=== PATIENT | female | born 1950 | race Caucasian/White ===

== ENCOUNTER 2017-07-24 16:10 | Emergency (ER) | payer MEDICARE, BC ==
[~2017-07-24] VITALS: Ht 162.6 cm; Wt 88.1 kg
[~2017-07-24 16:10] MED LIST: CALC-179 PO; D3400CAP PO; FISHOIL PO; SUPPLEMENTS
[2017-07-24 16:13] VITALS: BP 153/87; PULSE 79; RESP 16; TEMP 98.1; O2SAT 97
[2017-07-24] MEDS ORDERED: DIOV80TA2 PO (16:29)
[2017-07-24] MEDS ORDERED: SODIUM CHLORIDE 0.9% FLUSH 10 ML FLUSH IVF PRN (17:15)
[2017-07-24 17:45] LABS: AUTOMATED NEUTROPHIL # 4.8 TH/MM3 (1.8-7.7); BASOPHIL % 0.6 % (0.0-2.0); EOSINOPHIL # 0.1 TH/MM3 (0-0.4); EOSINOPHIL % 0.9 % (0.0-4.0); HEMATOCRIT 36.4 % (35.0-46.0); LYMPH % 24.6 % (9.0-44.0); LYMPHOCYTE # 1.8 TH/MM3 (1.0-4.8); MEAN CELL VOLUME 89.4 FL (80.0-100.0); MEAN CORPUSCULAR HEMOGLOBIN 29.4 PG (27.0-34.0); MEAN CORPUSCULAR HGB CONC 32.9 % (32.0-36.0); MEAN PLATELET VOLUME 9.3 FL (7.0-11.0); MONO % 6.3 % (0.0-8.0); MONOCYTE # 0.4 TH/MM3 (0-0.9); NEUT % 67.6 % (16.0-70.0); PLATELET COUNT 227 TH/MM3 (150-450); RED BLOOD COUNT 4.07 MIL/MM3 (4.00-5.30); WHITE BLOOD COUNT 7.1 TH/MM3 (4.0-11.0)
--- NOTE | 2017-07-24 17:46 | RADRPT ---
EXAM DATE/TIME: 07/24/2017 17:25 [place] COMPARISON: No previous studies available for comparison. INDICATIONS : Chest pain. MEDICAL HISTORY : None. SURGICAL HISTORY : None. ENCOUNTER: Initial ACUITY: 1 day PAIN SCORE: 4/10 LOCATION: Left chest FINDINGS: The lungs are clear without infiltrate, nodule, or mass. There is no appreciable pleural effusion fo r technique. Heart and mediastinum are unremarkable. CONCLUSION: No acute cardiopulmonary disease. Polo Taylor MD on July 24, 2017 at 17:43 Board Certified Radiologist. This report was verified electronically.
[2017-07-24 17:53] LABS: CHLORIDE 102 MEQ/L (98-107); SODIUM (NA) 137 MEQ/L (136-145)
--- NOTE | 2017-07-24 17:54 | PD ---
HPI Chief Complaint: Pain: Acute or Chronic Time Seen by Provider: 16:57 Travel History International Travel<30 days: No Contact w/Intl Traveler<30days: No Traveled to known affect area: No History of Present Illness HPI This is a 67-year-old female with history of hypertension and dyslipidemia here for evaluation of nontraumatic left arm pain times one day. Patient reports the pain originated in the left upper back and radiates down the left arm. She had one episode similar to this several years ago which she attributed to muscle spasm in the back. The pain is intense aching. The pain is worse with movement of the arm and back. Slightly relieved with rest. She was speaking with a family member who is a physician who advised her that this could be cardiac in nature and recommended she go to the ER for evaluation. She denies chest pain, shortness of breath, diaphoresis currently. PFSH Past Medical History Hx Anticoagulant Therapy: No Cardiovascular Problems: Yes (HTN,CHOL) Diabetes: No Diminished Hearing: No Hypertension: Yes Immunizations Current: Yes Migraines: Yes Shingles: Yes (2013) Tetanus Vaccination: Never Vaccinated Influenza Vaccination: No ?: Not Menopausal: Yes : 2 Para: 2 Past Surgical History Gynecologic Surgery: Yes (HYSTERECTOMY) Hysterectomy: Yes (PARTIAL 97) Social History Alcohol Use: No Tobacco Use: No Substance Use: No Allergies-Medications (Allergen,Severity, Reaction): Coded Allergies: lactose (Unverified Allergy, Severe, Headache, 07/24/17) Reported Meds & Prescriptions Reported Meds & Active Scripts Active Robaxin (Methocarbamol) 750 Mg Tab 750 Mg PO TID Ibuprofen 800 Mg Tab 800 Mg PO Q6HR PRN Reported Diovan Hct (Valsartan-Hydrochlorothiazide) 80-12.5 Mg Tab 1 Tab PO DAILY [Supplements] Review of Systems Except as stated in HPI: all other systems reviewed are Neg General / Constitutional: No: Fever Eyes: No: Visual changes HENT: No: Headaches Cardiovascular: No: Chest Pain or Discomfort Respiratory: No: Shortness of Breath Gastrointestinal: Positive: Nausea Genitourinary: No: Dysuria Musculoskeletal: Positive: Pain (left arm) Physical Exam Narrative GENERAL: Alert and well-appearing 67-year-old female SKIN: Warm and dry. HEAD: Normocephalic. EYES: No injection or drainage. NECK: Supple. CARDIOVASCULAR: Regular rate and rhythm without murmurs, gallops, or rubs. RESPIRATORY: Breath sounds equal bilaterally. No accessory muscle use. GASTROINTESTINAL: Abdomen soft, non-tender, nondistended. MUSCULOSKELETAL: No cyanosis, or edema. Left upper extremity: The arm is nontender to palpation. She reports pain throughout the entire arm from the shoulder to the wrist. 2+ distal pulses. Brisk cap refill. BACK: Mild point tenderness to the soft tissue over the left scapular/trapezius muscle region. without obvious deformity. No CVA tenderness. Data Data Last Documented VS Orders Orders Electrocardiogram (07/24/17 17:05) Basic Metabolic Panel (Bmp) (07/24/17 17:05) Complete Blood Count With Diff (07/24/17 17:05) Troponin I (07/24/17 17:05) Chest, Single Ap (07/24/17 17:05) Iv Access Insert/Monitor (07/24/17 17:05) Sodium Chloride 0.9% Flush (Ns Flush) (07/24/17 17:15) Ketorolac Inj (Toradol Inj) (07/24/17 18:30) Ed Discharge Order (07/24/17 18:28) Labs Laboratory Tests Test 07/24/17 17:20 White Blood Count 7.1 TH/MM3 Red Blood Count 4.07 MIL/MM3 Hemoglobin 12.0 GM/DL Hematocrit 36.4 % Mean Corpuscular Volume 89.4 FL Mean Corpuscular Hemoglobin 29.4 PG Mean Corpuscular Hemoglobin Concent 32.9 % Red Cell Distribution Width 13.0 % Platelet Count 227 TH/MM3 Mean Platelet Volume 9.3 FL Neutrophils (%) (Auto) 67.6 % Lymphocytes (%) (Auto) 24.6 % Monocytes (%) (Auto) 6.3 % Eosinophils (%) (Auto) 0.9 % Basophils (%) (Auto) 0.6 % Neutrophils # (Auto) 4.8 TH/MM3 Lymphocytes # (Auto) 1.8 TH/MM3 Monocytes # (Auto) 0.4 TH/MM3 Eosinophils # (Auto) 0.1 TH/MM3 Basophils # (Auto) 0.0 TH/MM3 CBC Comment DIFF FINAL Differential Comment Blood Urea Nitrogen 19 MG/DL Creatinine 0.74 MG/DL Random Glucose 89 MG/DL Calcium Level 8.9 MG/DL Sodium Level 137 MEQ/L Potassium Level 3.9 MEQ/L Chloride Level 102 MEQ/L Carbon Dioxide Level 29.9 MEQ/L Anion Gap 5 MEQ/L Estimat Glomerular Filtration Rate 78 ML/MIN Troponin I LESS THAN 0.02 NG/ML MDM Medical Decision Making Medical Screen Exam Complete: Yes Emergency Medical Condition: Yes Differential Diagnosis ACS, Upper back strain and muscle spasm, cervical radiculopathy Narrative Course This is a 67-year-old female here with nontraumatic left arm pain times 2 days. She does have tenderness of the soft tissue/musculature in the upper left trapezius muscle region. This is likely musculoskeletal as it reproducible to palpation. Patient did have a normal stress test in 2014. Patient does have several cardiac risk factors therefore EKG, troponin, and chest x-ray ordered. EKG: Sinus rhythm. Rate of 84. Normal access. No ST elevation or depression. Chest x-ray: No abnormality Troponin: Negative Patient was offered admission to the chest pain center for serial EKGs and troponins. Patient declines admission. She states she would like to follow-up on an outpatient basis primary doctor or follow-up with the dictaphone mechanic. Risks were discussed with patient. She verbalizes understanding. He was given Toradol which she reports improved symptoms and she is requesting discharge. Diagnosis Primary Impression: Left arm pain Referrals: Lead Engineer Primary Care Physician Additional Instructions: Medication as directed. Make an appointment to establish with a primary doctor. Return immediately if he developed chest pain, shortness of breath, or acute worsening of symptoms Scripts Methocarbamol (Robaxin) 750 Mg Tab 750 MG PO TID for Muscle Spasm, #14 TAB 0 Refills Prov: Johana Gu 07/24/17 Ibuprofen (Ibuprofen) 800 Mg Tab 800 MG PO Q6HR Y for PAIN, #40 TAB 0 Refills Prov: Johana Gu 07/24/17 Disposition: 01 DISCHARGE HOME Condition: Stable Johana Gu Jul 24, 2017 17:53
[2017-07-24 17:56] LABS: CALCIUM 8.9 MG/DL (8.5-10.1)
[2017-07-24 17:57] LABS: BICARBONATE 29.9 MEQ/L (21.0-32.0); BLOOD UREA NITROGEN 19 MG/DL (7-18); GLUCOSE,RANDOM 89 MG/DL (74-106)
[2017-07-24 18:00] LABS: CREATININE 0.74 MG/DL (0.50-1.00); GLOMERULAR FILTRATION RATE 78 ML/MIN (>89)
[2017-07-24 18:04] LABS: TROPONIN I LESS THAN 0.02 NG/ML (0.02-0.05)
[2017-07-24] MEDS ORDERED: IBUP1TAB7 PO (18:27)
[2017-07-24] MEDS ORDERED: ROBA750T PO (18:27)
[2017-07-24] MEDS ORDERED: KETOROLAC TROMETHAMINE 30 MG/ML (IVP) VIAL IV PUSH ONE (18:30)
--- NOTE | 2017-07-25 22:13 | EKG ---
Date Performed: 07/24/2017 Time Performed: 17:34:32 PTAGE: 67 years EKG: Sinus rhythm LOW QRS VOLTAGE IN PRECORDIAL LEADS BORDERLINE ECG PREVIOUS TRACING : 06/21/2015 20.06 DOCTOR: Justin Bass Interpretating Date/Time 07/25/2017 22:04:20
== END 2017-07-24 18:35 | disposition home or self-care (01) ==
LOC: PHEFT 16:10
DX: M79.602 Pain in left arm (principal); R07.9 Chest pain, unspecified; R11.0 Nausea; I10 Essential (primary) hypertension; E78.5 Hyperlipidemia, unspecified
CPT/HCPCS: 71045; 80048; 84484; 85025; 93005; 96374; 99285; J1885